=== PATIENT | female | born 1990 | race Caucasian/White ===

== ENCOUNTER → 2020-12-07 12:04 | Outpatient (CLI) | payer OTHER, SELFPAY ==
[2020-12-07 21:18] LABS: COVID19 - ORCAS (NP or Nasal) Negative (Negative)
== END ==
PROVIDERS: PCP Family Medicine; Visit Provider Physician Assistant
DX: Z20.822 Contact with and (suspected) exposure to COVID-19 (principal)
CPT/HCPCS: U0003

== ENCOUNTER → 2023-12-31 10:26 | Outpatient (CLI) | payer SELFPAY ==
[2023-12-31 17:35] LABS: Rubella Antibody IgG 45.3 IU/mL
[2024-01-01 12:09] LABS: Mumps Virus IgG Antibody 55.3 AU/mL (Immune >10.9)
== END ==
PROVIDERS: PCP Physician Assistant; Visit Provider Physician Assistant
DX: Z78.9 Other specified health status (principal)
CPT/HCPCS: 86735; 86762; 86765